=== PATIENT | female | born 1940 | race Caucasian/White ===

== ENCOUNTER 2022-10-08 08:53 | Emergency (ER) | payer MEDICARE, MEDICAID, SELFPAY ==
[2022-10-08] VITALS (15 sets, daily range): BP systolic 131–156; BP diastolic 54–64; PULSE 48–64; RESP 9–18; TEMP 36.6; O2SAT 96–100
--- NOTE | ~2022-10-08 | CT_ITS ---
EXAMINATION: CT cervical spine wo con DATE: 10/08/2022 09:27 INDICATION: Neck pain. TECHNIQUE: Computed tomography (CT) of the cervical spine was performed without intravenous contrast. Automated exposure control and iterative reconstruction technique were employed. The dose-length pro duct was 169.26 mGy-cm. COMPARISON: None FINDINGS: There is mild scarring at the lung apices. There is 9 degrees dextrocurvature of cervicotho racic spine. There is 2 mm anterolisthesis of C4 on C5. Vertebral body heights are normal. There is m ildly decreased disc height at C3-C4 and severely decreased disc height at C5-C6 and C6-C7. The follo wing disc levels are specifically discussed: C2-C3: There is moderate left uncovertebral joint osteoarthritis. There is severe bilateral facet landry nt osteoarthritis. There is mild left neural foraminal stenosis. There is no central canal stenosis. C3-C4: There is moderate right and severe left uncovertebral joint osteoarthritis. There is moderate right and severe left facet joint osteoarthritis. There is mild right and moderate left neural forami nal stenosis. There is no central canal stenosis. C4-C5: There is no uncovertebral joint osteoarthritis. There is moderate right and severe left facet joint osteoarthritis. There is mild left neural foraminal stenosis. There is no central canal stenosi s. C5-C6: There is severe bilateral uncovertebral joint osteoarthritis. There is severe right and modera te left facet joint osteoarthritis. There is mild bilateral neural foraminal stenosis. There is mild central canal stenosis. C6-C7: There is moderate right and severe left uncovertebral joint osteoarthritis. There is moderate right and severe left facet joint osteoarthritis. There is mild bilateral neural foraminal stenosis. There is mild central canal stenosis. C7-T1: There is no uncovertebral joint osteoarthritis. There is severe bilateral facet joint osteoart hritis. There is mild right neural foraminal stenosis. There is no central canal stenosis. IMPRESSION: 1. No fracture. 2. Severe cervical spondylosis. Reviewed, dictated and finalized at location A. E SHARPENER
--- NOTE | ~2022-10-08 | XR_ITS ---
EXAMINATION: XR chest 2V DATE: 10/08/2022 09:15 INDICATION: Chest pain. TECHNIQUE: Frontal and lateral views of the chest were obtained on 3 radiographs. COMPARISON: None. FINDINGS: Calcified left lung nodules and calcified left hilar lymph nodes are consistent with old gr anulomatous disease. There is a 1 cm nodule in left lower lung zone on the frontal view. No pleural e ffusion or pneumothorax. The heart size is normal. There are prominent paracardial fat pads. IMPRESSION: 1. 1 cm nodule in left lower lung zone on the frontal view suspicious for primary bronchogenic carci noma. Noncontrast chest CT is recommended. Reviewed, dictated and finalized at location A. F PHYSICAL THERAPY ASSISTANT IMPRESSION: 1. 1 cm nodule in left lower lung zone on the frontal view suspicious for prim william bronchogenic carcinoma. Noncontrast chest CT is recommended.
--- NOTE | ~2022-10-08 | CT_ITS ---
EXAMINATION: CT brain wo con DATE: 10/08/2022 09:26 INDICATION: Headache. Neck pain. TECHNIQUE: Computed tomography (CT) of the head was performed without intravenous contrast. The mA wa s adjusted according to patient size. Iterative reconstruction technique was employed. The dose-lengt h product was 605.33 mGy-cm. COMPARISON: None FINDINGS: There are scattered areas of low attenuation in the cerebral white matter, which is within normal limits for the patient's age. There is no intracranial hemorrhage, acute infarction, or abnorm al intracranial mass lesion. The ventricles are normal in size. The orbits are normal. There is mild mucosal thickening in the paranasal sinuses. There are trace bilateral mastoid effusions. IMPRESSION: 1. Normal aging brain. Reviewed, dictated and finalized at location A. LASTIC APTITUDE TEST GRADER IMPRESSION: 1. Normal aging brain.
--- NOTE | ~2022-10-08 | CT_ITS ---
EXAMINATION: CTA chest PE protocol DATE: 10/08/2022 10:18 INDICATION: Shortness of breath. Chest pain. TECHNIQUE: Computed tomography angiography (CTA) of the chest was performed with 100 mL Omnipaque-350 intravenous contrast timed to evaluate the pulmonary arteries. Coronal maximum intensity projection 3D-reconstructions were created by the technologist. Automated exposure control and iterative reconst ruction technique were employed. The dose-length product was 583.10 mGy-cm. COMPARISON: Chest 2 views 10/08/2022 FINDINGS: There is mild scarring at the lung apices. There is mild atelectasis in the inferior lungs. Calcified left lung nodules and calcified left hilar lymph nodes are consistent with old granulomato us disease. There are trace pleural effusions. There is a moderate-sized sliding hiatal hernia. Cardi omegaly is noted. There are coronary artery calcifications. There is a small pericardial effusion. Th ere is no pulmonary embolus. There is severe thoracic spondylosis. There is mild chronic anterior wed ging of multiple vertebral bodies. IMPRESSION: 1. No pulmonary embolus. 2. Calcified nodule in left lung correlating with the chest radiograph abnormality, consistent with o ld granulomatous disease. 3. Moderate-sized sliding hiatal hernia. 4. Cardiomegaly. Small pericardial effusion. Reviewed, dictated and finalized at location A. TER STACKER IMPRESSION: 1. No pulmonary embolus. 2. Calcified nodule in left lung correlating with the chest radiograph abnormal ity, consistent with old granulomatous disease. 3. Moderate-sized sliding hiatal hernia. 4. Cardiomegaly. Small pericardial effusion.
--- NOTE | 2022-10-08 08:45 | ECG_ITS ---
Measurements Intervals [place] Rate: 48 P: -36 MA: 112 QRS: -41 QRSD: 87 T: -19 QT: 468 QTc: 422 Interpretive Statements SINUS BRADYCARDIA WITH FIRST DEGREE AV BLOCK INCOMPLETE RIGHT BUNDLE BRANCH BLOCK LEFT VENTRICULAR HYPERTROPHY WITH ST-T CHANGE POOR R WAVE PROGRESSION, ANTERIOR LEADS MINIMAL Q WAVES- HIGH LATERAL LEADS BORDERLINE T WAVE ABNORMALITY- INFERIOR LEADS BASELINE ARTIFACT- I, II, III, AVR, AVL,A VF, V1, V5 ABNORMAL ECG NO PREVIOUS ECG AVAILABLE FOR COMPARISON Electronically Signed On 10-09-2022 14:26:21 [employer] by Bobby Morales D.O.
--- NOTE | 2022-10-08 09:02 | ED.CHESTPAIN ---
HPI - Chest Pain General Chief Complaint: Chest Pain <CHNIYERE Salazar Last Filed: 10/08/22 13:11> Stated Complaint: chest pain <CHINYERE Salazar Last Filed: 10/08/22 13:11> Time Seen by Provider: 10/08/22 08:55 <CHINYERE Salazar Last Filed: 10/08/22 13:11> History of Present Illness HPI narrative: Patient is an 82-year-old female with a history of Alzheimer's dementia, hypertension, coming from custodial for evaluation of chest pain earlier today. Patient is a poor historian due to her baseline mental status and is unsure why she is here. She currently is complaining of neck pain/posterior WOOD and does admit that she had some chest pain earlier today. She is unable to describe the chest pain. No abdominal pain, leg swelling, fevers or chills but again the history is limited. She received aspirin in route via EMS. <CHINYERE Salazar Last Filed: 10/08/22 13:11> Related Data Allergies/Adverse Reactions: Allergies Allergy/AdvReac Type Severity Reaction Status Date / Time No Known Allergies Allergy Verified 10/08/22 11:43 <CHINYERE Salazar Last Filed: 10/08/22 13:11> Review of Systems Review of Systems: Gen: Denies fevers or chills Eyes: Denies eye pain or visual change ENT: Denies congestion Respiratory: Denies shortness of breath or cough CV: Reports chest pain GI: Denies abdominal pain nausea, emesis or diarrhea denies burning, urgency, frequency or hematuria Musculoskeletal: reports neck pain. Denies back pain or muscle pain Neuro: reports headache. Denies numbness, tingling, weakness or focal weakness Skin: Denies rash Except as documented, all other systems reviewed and negative <CHINYERE Salazar Last Filed: 10/08/22 13:11> Exam Narrative: APPEARANCE: Alert and oriented x1 which is her baseline, no acute distress Head: Normocephalic and atraumatic. EYES: PERRLA/EOMI, conjunctivae clear NOSE: No nasal drainage EARS: External ear normal in appearance THROAT: Oropharynx is clear. Mucous membranes are moist. NECK: Midline tenderness to c6 and pain with ROM. RESPIRATORY: Airway patent, respirations nonlabored. Clear to auscultation bilaterally, no rales, rhonchi, wheezing. CARDIOVASCULAR: Slow rate. Regular rhythm without murmurs, rubs, or gallops. ABDOMINAL: Normoactive bowel sounds. Soft, nontender, nondistended. No rebound tenderness or guarding. MUSCULOSKELETAL: Extremities are warm and well-perfused. Moves all extremities well. 1+ pitting edema to BLE. NEURO: Appears confused. Normal speech. No focal neurologic deficits. SKIN: Skin is warm and dry. No rashes. PSYCHIATRIC: Normal affect/mood. <Bianca Reveles PA-C - Last Filed: 10/08/22 13:11> Course DIPPER [employer] BAKER/PA Physician Supervision This visit was performed by both a physician and an APC. I performed all aspects of the MDM as documented. Patient felt appropriate for discharge. CBC unremarkable, CMP with only mild hypokalemia. Troponin negative x2. CTA of the chest as well as chest x-ray and head/C-spine CTs without need for acute intervention. <Cricket Barclay MD - Last Filed: 10/08/22 13:03> Vital Signs Vital signs: Vital Signs Temperature 97.9 F 10/08/22 08:45 Pulse Rate 53 L 10/08/22 08:45 Respiratory Rate 18 10/08/22 08:45 Blood Pressure 154/61 H 10/08/22 08:45 Pulse Oximetry 96 10/08/22 08:45 Oxygen Delivery Room Air 10/08/22 08:45 Temperature 97.9 F 10/08/22 08:45 Pulse Rate 50 L 10/08/22 11:30 Respiratory Rate 10 L 10/08/22 11:30 Blood Pressure 144/58 H 10/08/22 10:16 Pulse Oximetry 97 10/08/22 11:30 Oxygen Delivery Room Air 10/08/22 08:45 <Bianca Reveles PA-C - Last Filed: 10/08/22 13:11> Vital Signs Temperature 97.9 F 10/08/22 08:45 Pulse Rate 53 L 10/08/22 08:45 Respiratory Rate 18 10/08/22 08:45 Blood Pressure 154/61 H 10/08/22 08:45 Pulse Oxime
[2022-10-08 09:05] LABS: Basophils Percent Auto 0.5 % (0.2-1.2); Eosinophils Absolute Auto 0.2 K/mm3 (0-0.3); Eosinophils Percent Auto 3.9 % (0-4.4); Hematocrit 38.6 % (37.0-47.0); Hemoglobin 12.3 g/dL (12.0-15.0); Immature Granulocyte Absolute 0.03 K/mm3 (0.00-0.031); Immature Granulocyte Percent A 0.5 % (0-0.5); Lymphocytes Absolute Auto 1.73 K/mm3 (0.9-3.2); Lymphocytes Percent Auto 29.3 % (18.3-44.2); Mean Corpuscular HGB Conc 31.9 g/dl (32-36); Mean Corpuscular Hemoglobin 30.4 pg (26-34); Mean Corpuscular Volume 95.5 fl (80-100); Mean Platelet Volume 9.4 fl (7.4-10.4); Monocytes Absolute Auto 0.5 K/mm3 (0.1-0.6); Monocytes Percent Auto 9.2 % (2.6-8.5); Neutrophils Absolute Auto 3.3 K/mm3 (1.3-6.7); Neutrophils Percent Auto 56.6 % (45.5-73.1); Platelet Count Result 194 k/mm3 (150-375); Red Blood Count 4.04 M/mm3 (4.2-5.4); Red Cell Distribution Width 12.5 % (11.5-14.5); White Blood Count 5.9 K/mm3 (4.5-10.0)
[2022-10-08 09:18] LABS: INR 1.2; Prothrombin Time 15.2 Seconds (11.1-14.7)
[2022-10-08 09:19] LABS: Alanine Aminotransferase 39 U/L (6-35); Albumin Level 4.2 g/dL (3.5-5.1); Alkaline Phosphatase 71 U/L (38-126); Anion Gap 4 mmol/L (8-16); Aspartate Amino Transferase 39 U/L (14-36); Bilirubin,Total 0.8 mg/dL (0.2-1.3); Blood Urea Nitrogen 15 mg/dL (7-17); Calcium 8.8 mg/dL (8.4-10.2); Carbon Dioxide 34 mmol/L (22-30); Chloride 99 mmol/L (98-107); Estimated Glomerular Filt Rate 48; Glucose 117 mg/dL (65-110); Lipase 40 U/L (23-300); Partial Thromboplastin Time 44.1 SECONDS (22.3-36.8); Potassium 3.1 mmol/L (3.4-5.0); Sodium 137 mmol/L (137-145)
[2022-10-08 09:28] LABS: Troponin I < 0.012 ng/mL (0.000-0.034)
--- NOTE | 2022-10-08 09:56 | PC.NURSE ---
Patient resting in no acute distress on stretcher. Denies any needs at this time. Pt's family at bedside, updated on results and plan of care.
[2022-10-08] MEDS: POTASSIUM CHLORIDE 20 MEQ PACKET (FOR LIQUID) PO (11:44)
[2022-10-08 12:10] LABS: Troponin I < 0.012 ng/mL (0.000-0.034)
--- NOTE | 2022-10-08 12:56 | PC.NURSE ---
upon removing ekg sticker from arm pt sustained small skin tear. tegaderm dressing applied.
== END 2022-10-08 12:58 ==
PROVIDERS: Emergency Medicine; Emergency Provider Physician Assistant
DX: R07.9 Chest pain, unspecified (principal); R00.1 Bradycardia, unspecified; G30.9 Alzheimer's disease, unspecified; F02.80 Dementia in other diseases classified elsewhere, unspecified severity, without behavioral disturbance, psychotic disturbance, mood disturbance, and anxiety; I10 Essential (primary) hypertension
CPT/HCPCS: 36415; 70450; 71046; 71275; 72125; 80053; 83690; 84484; 85025; 85610; 85730; 93005; 99284; A9270; Q9967

== ENCOUNTER 2022-11-20 15:46 | Emergency (ER) | payer MEDICARE, MEDICAID, SELFPAY ==
--- NOTE | ~2022-11-20 | CT_ITS ---
EXAMINATION: CT brain wo con DATE: 11/20/2022 16:50 INDICATION: Neck likely patient post fall with head injury and hematoma to the right side of the fore head. TECHNIQUE: Computed tomography (CT) of the head was performed without intravenous contrast. Sagittal and coronal reconstructions were performed. The mA was adjusted according to patient size. Iterative reconstruction technique was employed. The dose-length product was 605.33 mGy-cm. COMPARISON: head CT dated 09/10/2022 FINDINGS: No fracture. No acute intracranial hemorrhage, acute infarction or abnormal extra axial fluid collect ion. There is mild scattered white matter hypoattenuation consistent with chronic small vessel ischem ic disease. Symmetric prominence of the sulci and ventricles consistent with moderate age-appropriate diffuse cerebral volume loss. No mass/mass effect. Mild mucosal thickening the bilateral ethmoid sin uses. Trace right mastoid effusion. IMPRESSION: 1. No fracture or acute intracranial process. 2. Age-related changes including moderate diffuse volume loss and mild scattered white matter hypoatt enuation consistent with chronic small vessel ischemic disease. Reviewed, dictated and finalized at location A. IMPRESSION: 1. No fracture or acute intracranial process. 2. Age-related changes including moderate diffuse volume loss and mild scattere d white matter hypoattenuation consistent with chronic small vessel ischemic di sease.
--- NOTE | ~2022-11-20 | CT_ITS ---
EXAMINATION: CT cervical spine wo con DATE: 11/20/2022 16:50 INDICATION: Fall with head injury TECHNIQUE: Computed tomography (CT) of the cervical spine was performed without intravenous contrast. Automated exposure control and iterative reconstruction technique were employed. The dose-length pro duct was 237.45 mGy-cm. COMPARISON: None FINDINGS: Moderate osteoarthritis at the atlantoaxial articulation. 2 mm anterolisthesis C4 on C5. Vertebral brando dy heights are normal. No fracture. Mild disc height loss at C3-C4 and C4-C5. Severe disc height loss at C5-C6 and C6-C7. Atherosclerotic calcifications at the bilateral carotid bulbs. Cervical soft tis sues are otherwise unremarkable. Biapical pleural-parenchymal scarring, mild on the left and moderate on the right. Mucous plugging of a few subsegmental bronchi at the bilateral apices. IMPRESSION: 1. No acute osseous abnormality. 2. Severe cervical spondylosis. See report from one month prior for [facility] Reviewed, dictated and finalized at location A. IMPRESSION: 1. No acute osseous abnormality. 2. Severe cervical spondylosis. See report from one month prior for further det ail on a level by level basis.
[2022-11-20 15:50] VITALS: BP 147/68; PULSE 54; RESP 21; TEMP 36.8; O2SAT 98
--- NOTE | 2022-11-20 16:22 | ED.HEATRA ---
HPI - Head Injury General Chief complaint: Head Injury Stated complaint: fall Time Seen by Provider: 11/20/22 15:51 History of Present Illness HPI Narrative: Patient is an 82-year-old female presenting after a fall. Patient is a resident with a local nursing facility. She has a history of dementia so she is a rather poor historian. According to the nursing facility she had a ground-level fall and struck the right side of her head. Unclear loss of consciousness. On my evaluation, the patient denies any complaints. She denies any pain. She states she does not know why she is here. Related Data Allergies Allergy/AdvReac Type Severity Reaction Status Date / Time chlorthalidone Allergy Unknown Verified 11/22/22 07:37 Review of Systems Review of Systems: ROS unobtainable: Yes unobtainable due to medical condition and other (dementia) Exam Narrative: GENERAL: Elderly female lying in bed in no acute distress HEAD: Normocephalic, superficial abrasion right forehead EYES: PERRLA and EOMI. ENT: Nares clear, no rhinorrhea or epistaxis. Mucous membranes tacky NECK: Supple. CHEST: Clear to auscultation. No respiratory distress. HEART: Bradycardic, regular rhythm Normal peripheral pulses. ABDOMEN: Soft, nontender, nondistended EXTREMITIES: Normal range of motion. No edema. SKIN: Warm, dry, superficial abrasion right forehead NEURO: No focal deficits. Alert and oriented x3. 5 out of 5 strength in all extremities PSYCH: Normal mood and affect. Course Vital Signs Vital signs: Vital Signs Temperature 98.2 F 11/20/22 15:50 Pulse Rate 54 L 11/20/22 15:50 Respiratory Rate 21 H 11/20/22 15:50 Blood Pressure 147/68 H 11/20/22 15:50 Pulse Oximetry 98 11/20/22 15:50 Oxygen Delivery Room Air 11/20/22 15:50 Temperature 98.2 F 11/20/22 15:50 Pulse Rate 54 L 11/20/22 15:50 Respiratory Rate 21 H 11/20/22 15:50 Blood Pressure 147/68 H 11/20/22 15:50 Pulse Oximetry 98 11/20/22 15:50 Oxygen Delivery Room Air 11/20/22 15:50 MDM - Head Injury MDM Narrative Medical decision making narrative: Patient is an 82-year-old female presenting after a ground-level fall from a nursing facility. Exam remarkable for the above. She denies any complaints. She does look pretty dry on exam so we will give her some fluids. Will check CT head and cervical spine. CT head and cervical spine are negative for acute abnormalities. On reevaluation, the patient is resting comfortably. She denies any complaints. Family is at bedside. We discussed the normal imaging. They feel safe with her going back home. Advised PCP follow-up. Appropriate return precautions given. Patient is safe for discharge back to her nursing facility. Differential Diagnosis Differential diagnosis: Likely concussion without loss of consciousness, epidural hematoma, closed head injury, subarachnoid hematoma, subdural hematoma and other (fall) Critical Care Time Critical Care Time Critical Care Time: No Discharge Plan Discharge Clinical Impression: Closed head injury, Fall Patient Disposition: Home, Self-Care Condition: Stable Instructions: Antibiotic Form, Head Injury (ED) Additional Instructions: Your imaging today shows no acute injuries after your fall. Please use Tylenol for pain control as needed. Please follow-up with your primary care provider. If you develop worsening pain, numbness or weakness, vision changes, or other concerning symptoms arise, please return to the ER for Follow-up/Referrals: PHYSICIAN NOT ON STAFF,NONSTAFF [Primary Care Provider] -
--- NOTE | 2022-11-20 18:00 | PC.NURSE ---
pt resting on stretcher. no distress noted.
== END 2022-11-20 19:00 | disposition home or self-care (01) ==
PROVIDERS: Emergency Provider Emergency Medicine
DX: S09.90XA Unspecified injury of head, initial encounter (principal); W19.XXXA Unspecified fall, initial encounter; F03.90 Unspecified dementia, unspecified severity, without behavioral disturbance, psychotic disturbance, mood disturbance, and anxiety
CPT/HCPCS: 70450; 72125; 99284

== ENCOUNTER 2022-11-22 07:12 | Emergency (ER) | payer MEDICARE, MEDICAID, SELFPAY ==
--- NOTE | ~2022-11-22 | XR_ITS ---
Left Knee Technique: AP, lateral, and oblique views were obtained. Clinical History: Pain Findings: No fracture or dislocation is seen. There is advanced degenerative change of the medial com partment. There is moderate degenerative change of the lateral and patellofemoral compartments. [place] mpartment osteophytes are present. There is medial compartment narrowing. Soft tissues are unremarkab le. No joint effusion is seen. Impression: Advanced degenerative change of the medial compartment, and moderate degenerative change of the later al and patellofemoral compartments. No fracture or dislocation. Reviewed, dictated and finalized at location M. Impression: Advanced degenerative change of the medial compartment, and moderate degenerati ve change of the lateral and patellofemoral compartments. No fracture or dislocation.
--- NOTE | ~2022-11-22 | XR_ITS ---
AP view of the pelvis and AP and lateral views of the right hip Clinical history: Pain Findings: No acute fracture or dislocation is seen. Osseous alignment is anatomic. Bilateral hip and SI joint spaces are preserved. Soft tissues are unremarkable. Impression: No significant abnormality is seen. Reviewed, dictated and finalized at [facility]. Impression: No significant abnormality is seen.
--- NOTE | ~2022-11-22 | CT_ITS ---
CT head without contrast Indication: Status post fall COMPARISON: 11/20/2022 Technique: Serial scans were obtained through the brain without the administration of contrast. Dose reduction technique was used on this scan by utilizing automated exposure control and iterative recon struction technique. The dose-length product (DLP) was 605.33 mGy-cm. Findings: There is no evidence of intracranial hemorrhage, mass lesion, or acute infarct. The ventri cles and subarachnoid spaces are dilated, consistent with moderate atrophy. Low attenuation regions are seen within the periventricular white matter bilaterally, likely representing changes from chroni c microvascular ischemic disease. There is no evidence of edema, mass effect or midline shift. The visualized paranasal sinuses and mastoid air cells are clear. Impression: No intracranial hemorrhage, mass, or acute infarct. Atrophy and chronic white matter changes, as above. Reviewed, dictated and finalized at location . Impression: No intracranial hemorrhage, mass, or acute infarct. Atrophy and chronic white matter changes, as above.
--- NOTE | ~2022-11-22 | CT_ITS ---
Noncontrast CT scan of the cervical spine Technique: Multiple contiguous axial [address] images of the cervical spine were obtained and rec onstructed in 2D sagittal and coronal planes on the acquisition scanner. Dose reduction technique was used on this scan by utilizing automated exposure control, adjustment of the mA and/or kV according to patient size. Clinical History: Pain COMPARISON: 11/20/2022 Findings: No fractures or dislocations. Moderate degenerative disc narrowing and present at C5-C6 an d C6-C7. There is moderate degenerative change at the articulation of the odontoid process with the a nterior arch of C1. Scattered facet joint degenerative changes are stable from prior exam. No prevert ebral soft tissue swelling. Impression: No fracture or subluxation of the cervical spine. Stable degenerative changes. Please refer to prior exams for further details. Reviewed, dictated and finalized at [facility]. Impression: No fracture or subluxation of the cervical spine. Stable degenerative changes. Please refer to prior exams for further details.
[2022-11-22 07:20] VITALS: BP 95/83; PULSE 46; RESP 16; TEMP 36.2; O2SAT 96
--- NOTE | 2022-11-22 08:20 | PC.NURSE ---
c collar removed per verbal order of dr. lazo. warm blankets provided for pts comfort. pts daughter at bedside.
--- NOTE | 2022-11-22 08:30 | ED.FALL ---
HPI - Fall General Chief Complaint: Fall Stated Complaint: GLF Time Seen by Provider: 11/22/22 07:16 History of Present Illness HPI Narrative: Pt had an apparent ground level fall this morning per NH report and EMS. Pt complained of neck pain and has bruise on right hip and knee. Pt has a history of frequent falls and was here a couple of days ago for a fall. Related Data Allergies Allergy/AdvReac Type Severity Reaction Status Date / Time chlorthalidone Allergy Unknown Verified 11/22/22 07:37 Review of Systems Review of Systems: ROS unobtainable: Yes unobtainable due to mental status Exam Const: General: no acute distress Nutritional Appearance: well nourished Limitations: altered mental status HENMT: Head: normal to inspection Eyes: Conjunctivae: conjunctivae normal EOM: EOMs intact bilaterally Neck: Neck: normal visual inspection, no lymphadenopathy and no meningeal signs Chest: Chest palpation & inspection: normal inspection of the chest Resp: Effort & Inspection: normal respiratory effort Auscultation: clear to auscultation bilaterally Cardio: Rate: regular rate Rhythm: regular rhythm GI: GI Palp: Yes Soft to palpation Auscultation: normal bowel sounds Skin: Other: bruise right hip sand knee Neuro: General: moves all extremities Speech: normal speech Extrem: General: no clubbing, cyanosis or edema Course Vital Signs Vital signs: Vital Signs Temperature 97.2 F L 11/22/22 07:20 Pulse Rate 46 L 11/22/22 07:20 Respiratory Rate 16 11/22/22 07:20 Blood Pressure 95/83 L 11/22/22 07:20 Pulse Oximetry 96 11/22/22 07:20 Oxygen Delivery Room Air 11/22/22 07:20 Temperature 97.2 F L 11/22/22 07:20 Pulse Rate 46 L 11/22/22 07:20 Respiratory Rate 16 11/22/22 07:20 Blood Pressure 95/83 L 11/22/22 07:20 Pulse Oximetry 96 11/22/22 07:20 Oxygen Delivery Room Air 11/22/22 07:20 MDM - Fall MDM Narrative Medical decision making narrative: pt with history of falls has GLF this am. Pt baseline dementia and no change in LOC. x rays of hip and knee and CT head and neck no acute injury will send back. Discharge Plan Discharge Clinical Impression: Concussion with loss of consciousness, Contusion Patient Disposition: Home, Self-Care Condition: Stable Instructions: Antibiotic Form, Head Injury (ED), Contusion in Adults (ED) Follow-up/Referrals: PHYSICIAN NOT ON STAFF,NONSTAFF [Primary Care Provider] -
--- NOTE | 2022-11-22 09:00 | PC.NURSE ---
report called to emily broussard. states pt was supposed to have labs drawn per sons request. made aware that myself had spoken with son and daughter regarding pts films and no mention of labs was ever made. staff then stated that pt was supposed to have labs drawn this am but didnt since they sent pt out to us. rudely disconnected phone call.
== END 2022-11-22 09:00 | disposition home or self-care (01) ==
PROVIDERS: Emergency Provider Emergency Medicine
DX: S70.01XA Contusion of right hip, initial encounter (principal); S80.01XA Contusion of right knee, initial encounter; S06.0X9A Concussion with loss of consciousness of unspecified duration, initial encounter; F03.90 Unspecified dementia, unspecified severity, without behavioral disturbance, psychotic disturbance, mood disturbance, and anxiety; R29.6 Repeated falls; W18.30XA Fall on same level, unspecified, initial encounter
CPT/HCPCS: 70450; 72125; 73502; 73564; 99284

== ENCOUNTER 2022-11-24 10:29 | Emergency (ER) | payer MEDICARE, MEDICAID, SELFPAY ==
--- NOTE | ~2022-11-24 | CT_ITS ---
EXAMINATION: CT pelvis wo con DATE: 11/24/2022 13:04 INDICATION: Right hip pain post fall TECHNIQUE: High resolution computed tomography (CT) of the pelvis was performed without intravenous c ontrast. Additional sagittal and coronal reconstructions were performed. Automated exposure control a nd iterative reconstruction technique were employed. The dose-length product was 508.76 mGy-cm. COMPARISON: None FINDINGS: Bone alignment is normal. No fracture. There is prominent subcutaneous edema throughout the right but tock and extending into the proximal right thigh. This surrounds a multilobulated region of more homo geneous soft tissue density which extends over approximately 10 x 6 x 5 cm region at the lateral left buttock which given the history of trauma most consistent with a hematoma. Moderate osteoarthritis a t the bilateral hips with small amount of subarticular cystic change at the cephalad aspect of both t he left and right acetabula. No hip joint effusions. There is also moderate bilateral sacroiliac oste oarthritis. Mild lower lumbar spondylosis. The uterus is not identified and has likely been surgicall y resected. The bladder is normal. A few sigmoid diverticula without adjacent inflammatory change to suggest diverticulitis. Normal appendix. No free fluid in the pelvis. No pathologically enlarged pelv ic or inguinal lymphadenopathy. IMPRESSION: 1. Subcutaneous hematoma surrounding edema at the right buttock. No acute osseous abnormality. 2. Moderate bilateral hip and sacroiliac osteoarthritis. Reviewed, dictated and finalized at location A. IMPRESSION: 1. Subcutaneous hematoma surrounding edema at the right buttock. No acute osseo us abnormality. 2. Moderate bilateral hip and sacroiliac osteoarthritis.
--- NOTE | 2022-11-24 11:16 | PC.NURSE ---
Attempted triage, patient had to urgently go to [facility]. Assisted by daughter, will call patient back.
[2022-11-24 11:36] VITALS: BP 96/44; PULSE 61; RESP 16; TEMP 36.6; O2SAT 99
--- NOTE | 2022-11-24 12:45 | ED.GENADULT ---
HPI - General Adult General Chief complaint: Fall Stated complaint: right hip pain x 2 days, prior ER visit with XR Time Seen by Provider: 11/24/22 12:07 History of Present Illness HPI narrative: 82-year-old female presented to the ED for evaluation of extensive bruising to right hip and increased pain with ambulation. Patient does have history of frequent falls and was seen on both the and 22 November for falls. On patient's last fall she had negative x-rays of the right hip but family states that she has had increased bruising and increased pain with ambulation. Patient does take Eliquis for history of atrial fibrillation. Related Data Allergies Allergy/AdvReac Type Severity Reaction Status Date / Time chlorthalidone Allergy Unknown Verified 11/24/22 11:40 Review of Systems Review of Systems: All systems reviewed & are unremarkable except as noted in HPI and below Exam Narrative: APPEARANCE: Well appearing, no pain, no distress, well-nourished. HEAD: normocephalic, ecchymosis to forehead. EYES: PERRLA/EOMI, conjunctivae clear. NECK: Supple. No adenopathy, no masses. RESPIRATORY: Airway patent, respirations nonlabored. Clear to auscultation bilaterally, no rales, rhonchi, wheezing. CARDIOVASCULAR: Regular rate and rhythm without murmurs rubs or gallops. ABDOMINAL: Soft, nontender, nondistended, normal bowel sounds MUSCULOSKELETAL: Moves all extremities. Strength/ROM intact, No edema, No calf tenderness. Bruising to right hip NEURO: Alert. Cranial nerves II through XII intact. Grossly intact SKIN: Warm, dry. Normal Color. Extensive bruising through right hip. No skin breakdown or blood blisters Course Course Emergency Course: 82-year-old female presenting to the ED for evaluation of increased right hip pain and extensive bruising after having a fall 2 days ago. Patient and family were updated on the plan for further imaging. Family also stated that the patient had an elevated white blood cell count from labs that resulted today. 2:[address] scan did show evidence of a 10 x 5x 3 cm hematoma. Patient's hemoglobin did drop from 12-9.1. Case was discussed with surgery and they felt that the patient could be discharged back to the [facility] facility with close outpatient follow-up. Patient does stay at [facility] in the memory care unit and patient will have nursing assistance. Family was comfortable with the plan to hold the Eliquis for a few days and to have outpatient follow-up with surgery. Family was also updated on the anticipated progression of the bruising and on reasons to return to the emergency department. All questions and concerns were addressed. Family was comfortable with the plan for discharge and close follow-up. Vital Signs Vital signs: Vital Signs Temperature 97.8 F 11/24/22 11:36 Pulse Rate 61 11/24/22 11:36 Respiratory Rate 16 11/24/22 11:36 Blood Pressure 96/44 L 11/24/22 11:36 Pulse Oximetry 99 11/24/22 11:36 Oxygen Delivery Room Air 11/24/22 11:36 Temperature 97.8 F 11/24/22 11:36 Pulse Rate 60 11/24/22 15:00 Respiratory Rate 15 11/24/22 15:00 Blood Pressure 112/51 L 11/24/22 15:00 Pulse Oximetry 96 11/24/22 15:00 Oxygen Delivery Room Air 11/24/22 11:36 Medical Decision Making Vital Signs Vital Signs: Vital Signs Temperature 97.8 F 11/24/22 11:36 Pulse Rate 61 11/24/22 11:36 Respiratory Rate 16 11/24/22 11:36 Blood Pressure 96/44 L 11/24/22 11:36 Pulse Oximetry 99 11/24/22 11:36 Oxygen Delivery Room Air 11/24/22 11:36 Temperature 97.8 F 11/24/22 11:36 Pulse Rate 60 11/24/22 15:00 Respiratory Rate 15 11/24/22 15:00 Blood Pressure 112/51 L 11/24/22 15:00 Pulse Oximetry 96 11/24/22 15:00 Oxygen Delivery Room Air 11/24/22 11:36 Lab Data Lab results reviewed: Yes I reviewed the patient's lab results. 11/24/22 14:02 11/24/22 14:02 Labs: Lab Results
[2022-11-24 14:14] LABS: Basophils Percent Auto 0.3 % (0.2-1.2); Eosinophils Absolute Auto 0.2 K/mm3 (0-0.3); Eosinophils Percent Auto 2.7 % (0-4.4); Hematocrit 28.1 % (37.0-47.0); Hemoglobin 9.1 g/dL (12.0-15.0); Immature Granulocyte Absolute 0.03 K/mm3 (0.00-0.031); Immature Granulocyte Percent A 0.3 % (0-0.5); Lymphocytes Absolute Auto 1.84 K/mm3 (0.9-3.2); Mean Corpuscular HGB Conc 32.4 g/dl (32-36); Mean Corpuscular Hemoglobin 30.2 pg (26-34); Mean Corpuscular Volume 93.4 fl (80-100); Mean Platelet Volume 9.9 fl (7.4-10.4); Monocytes Absolute Auto 0.9 K/mm3 (0.1-0.6); Monocytes Percent Auto 10.5 % (2.6-8.5); Neutrophils Absolute Auto 5.7 K/mm3 (1.3-6.7); Neutrophils Percent Auto 65.2 % (45.5-73.1); Platelet Count Result 163 k/mm3 (150-375); Red Blood Count 3.01 M/mm3 (4.2-5.4); Red Cell Distribution Width 12.7 % (11.5-14.5); White Blood Count 8.8 K/mm3 (4.5-10.0)
[2022-11-24 14:24] LABS: Alanine Aminotransferase 24 U/L (6-35); Albumin Level 3.6 g/dL (3.5-5.1); Alkaline Phosphatase 59 U/L (38-126); Anion Gap 5 mmol/L (8-16); Aspartate Amino Transferase 23 U/L (14-36); Blood Urea Nitrogen 34 mg/dL (7-17); Calcium 8.5 mg/dL (8.4-10.2); Carbon Dioxide 32 mmol/L (22-30); Chloride 101 mmol/L (98-107); Estimated Glomerular Filt Rate 29; Glucose 107 mg/dL (65-110); Potassium 3.4 mmol/L (3.4-5.0); Sodium 138 mmol/L (137-145)
[2022-11-24 14:50] LABS: Influenza A QL RT-PCR Negative (Negative); Influenza B QL RT-PCR Negative (Negative); RSV RNA, RT-PCR Negative (Negative); SARS-CoV-2 RNA PCR Negative (Negative)
[2022-11-24 15:00] VITALS: BP 112/51; PULSE 60; RESP 15; O2SAT 96
== END 2022-11-24 15:19 ==
PROVIDERS: Emergency Provider Emergency Medicine
DX: S30.0XXA Contusion of lower back and pelvis, initial encounter (principal); Z20.822 Contact with and (suspected) exposure to COVID-19; I48.91 Unspecified atrial fibrillation; M16.0 Bilateral primary osteoarthritis of hip; M46.1 Sacroiliitis, not elsewhere classified; Z79.01 Long term (current) use of anticoagulants; W19.XXXA Unspecified fall, initial encounter
CPT/HCPCS: 36415; 72192; 80053; 85025; 87637; 99284

== ENCOUNTER 2022-11-30 14:01 | Outpatient (CLI) | payer MEDICARE, MEDICAID, SELFPAY ==
--- NOTE | ~2022-11-30 | MR_ITS ---
MRI of the right hip Clinical history: Pain Technique: Coronal T1-weighted, T2-weighted, and proton-density fat-sat images, and axial T1-weighted and proton-density fat-sat images were acquired through the pelvis. Coronal T2-weighted images and c oronal, axial, and sagittal proton-density fat-sat images were acquired through the right hip. Findings: There is no fracture, avascular necrosis, or transient osteoporosis of either hip. There is probable moderate chondromalacia diffusely of both hip joints, with focal subchondral cystic change in the right acetabular roof. No joint effusion evident. SI joints are grossly intact. No muscle atrophy or edema identified. Visualized muscle signals are unremarkable. Visualized tendons are intact. There is a large irregular probable hematoma in the subcutaneous soft tissues of the rig ht gluteal region, measuring up to approximately 10.8 x 5.7 x 7.3 cm in maximum extent. IMPRESSION: No fracture. Large hematoma in the subcutaneous soft tissues of the right gluteal region measuring approximately 1 0.8 x 5.7 x 7.3 cm in extent. Moderate bilateral hip joint chondromalacia. Reviewed, dictated and finalized at location . IMPRESSION: No fracture. Large hematoma in the subcutaneous soft tissues of the right gluteal region barrie suring approximately 10.8 x 5.7 x 7.3 cm in extent. Moderate bilateral hip joint chondromalacia.
== END 2022-11-30 14:02 | disposition home or self-care (01) ==
PROVIDERS: PCP Family Medicine; Visit Provider Family Medicine
DX: M94.251 Chondromalacia, right hip (principal); S30.0XXA Contusion of lower back and pelvis, initial encounter; X58.XXXA Exposure to other specified factors, initial encounter
CPT/HCPCS: 73721